=== PATIENT | male | born 1980 ===

== ENCOUNTER 2018-06-12 08:14 | Day surgery (SDC) | payer BC ==
--- NOTE | 2018-06-07 18:34 | HP ---
PREOPERATIVE HISTORY AND PHYSICAL: DATE OF SURGERY/ADMISSION: 06/12/18 DATE OF OFFICE VISIT/ENCOUNTER: 05/21/18 ATTENDING SURGEON: Ruma Cisse MD * (DICTATED BY ARSENIO HERNÁNDEZ) PROCEDURE: Right wrist carpal tunnel release, right ulnar nerve decompression at the elbow. HISTORY OF PRESENT ILLNESS: This is a 38-year-old male who complains of numbness and tingling in his bilateral hands, right is worse than left. Symptoms have been getting worse gradually over the past year. He does not recall any specific injury. He feels numbness mostly in the small and ring fingers, but sometimes in the middle finger and occasionally also his thumb. 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 He had an EMG/nerve conduction study, which showed moderate carpal tunnel syndrome on the right and clinical exam shows ulnar nerve compression at the elbow. The patient has consented to proceed with surgical intervention. PAST MEDICAL HISTORY: Unremarkable. PAST SURGICAL HISTORY: Appendectomy. CURRENT MEDICATIONS: None. ALLERGIES: SULFA ANTIBIOTICS cause hives. FAMILY MEDICAL HISTORY: Noncontributory. SOCIAL HISTORY: The patient is employed at [employer] as a electronics mechanic apprentice. He is a current smoker. He smokes approximately a half a pack per day and has done so for the past 20 years. He denies recreational drug use. He drinks alcohol on occasion. REVIEW OF SYSTEMS: Negative for general, cephalic, cardiovascular, respiratory , GI, , other musculoskeletal, integumentary, endocrine, neurologic, hematologic symptoms. Infectious disease is negative for MRSA, hepatitis C, and HIV. PHYSICAL EXAMINATION GENERAL: Well-developed, well-nourished 38-year-old male, in no acute distress. VITAL SIGNS: Height 5 feet 11-1/2 inches, weight 210 pounds. Pulse rate 98, blood pressure 130/78. HEENT: Normocephalic, atraumatic. Pupils are equal, round, and reactive to light and accommodation. Extraocular movements are intact. Throat is clear. NECK: Supple. No palpable lymph nodes. PULMONARY: Lungs are clear to auscultation bilaterally. No wheezes, rales, or rhonchi. CARDIOVASCULAR: Regular rate and rhythm. S1, S2. No murmurs, rubs, or gallops. No edema. ABDOMEN: Positive bowel sounds, soft, nontender. NEUROLOGICAL: Alert and oriented x3. Cranial nerves II through XII are intact. MUSCULOSKELETAL: On exam of his right upper extremity, he has no obvious muscle wasting. He has a positive Tinel's sign at the ulnar nerve at the elbow. He has significant weakness trying to resist finger abduction and thumb abduction. He has a positive Tinel's sign at the median nerve at the wrist. He can make a full fist. He had decreased sensation to light touch in all of the fingers. IMAGING STUDIES: EMG/nerve conduction study shows moderate carpal tunnel syndrome on the right. IMPRESSION: Right carpal tunnel syndrome, right ulnar nerve compression at the elbow. PLAN: The patient is scheduled to undergo a right wrist carpal tunnel release and a right ulnar nerve decompression at the elbow with Dr. Cisse on 06/12/18. He will return to the office 10 days postop for followup and suture removal. A prescription for Spencer was e-scribed to the patient's pharmacy for postoperative pain management. ARSENIO HERNÁNDEZ [id number]/[facility] #: [id number] DEANNA
[~2018-06-12 08:14] MED LIST: Buffered Lidocaine 0.9% SYRIN* 5 ML/SYR SYRINGE INTRADERM ONE
[2018-06-12] MEDS ORDERED: ceFAZolin 2 GM PREMIX in ORs 2 GM/50 ML BAG IVPB ONE (08:50)
[2018-06-12] MEDS ORDERED: Propofol* 10 MG/ML 20 ML BTL ONE (08:59)
[2018-06-12] MEDS ORDERED: Lidocaine 2% PF * 5 ML VIAL ONE (08:59)
[2018-06-12] MEDS ORDERED: Midazolam* 1 MG/ML 2 ML VIAL (2 MG) ONE (09:02)
[2018-06-12] MEDS ORDERED: Lidocaine 1% INJ* 10 MG/ML 30 ML SDV ONE (09:24)
[2018-06-12] MEDS ORDERED: Bupivacaine 0.5% PF 10 ML VIAL INJ ONE (09:36)
[2018-06-12 13:48] VITALS: BP 125/88
--- NOTE | 2018-06-12 22:46 | OP ---
DATE OF OPERATION: 06/12/18 - [facility] DATE OF : 82 SURGEON: Ruma Cisse MD COMMERCIAL SUBCONTRACTOR: ARSENIO Mart ANESTHESIA: Local MAC. PRE-OP DIAGNOSES: Ulnar nerve compression at the right elbow and median nerve compression at the right wrist. POST-OP DIAGNOSES: Ulnar nerve compression at the right elbow and median nerve compression at the right wrist. OPERATIVE PROCEDURE: Right carpal tunnel release and ulnar nerve decompression at the elbow. INDICATIONS: Ruy is a 38-year-old male who has numbness and tingling in all the fingers of his right hand, clinically has ulnar nerve compression at the elbow and median nerve compression at the wrist, both on the right. He presents for decompression of both nerves. ESTIMATED BLOOD LOSS: Zero. TOURNIQUET TIME: Approximately 30 minutes. DESCRIPTION OF PROCEDURE: The patient was brought to the operating room, was given a sedation anesthetic, and a local infiltration of 10 cc of 1% plain lidocaine at the right elbow, 10 cc of 1% plain lidocaine at the right wrist, and an additional 10 cc of 0.5% Marcaine plain and 5 cc of 1% plain lidocaine at the right elbow. The skin of his right upper extremity was prepped and draped in the usual sterile fashion. The upper extremity was exsanguinated and the tourniquet elevated to 250 mmHg. A curvilinear incision was made centered between the medial epicondyle and the tip of the olecranon process. We dissected bluntly down to the ulnar nerve, proximal to the elbow joint and was traced out proximally for several centimeters, then through the cubital tunnel which was completely released and then into the FCU muscle. The superficial and deep fascia of the FCU muscle was released. Deep branch of the medial antebrachial cutaneous nerve was preserved. The medial intermuscular septum was divided as it had a sharp edge near the nerve. The wound was copiously irrigated with saline. The nerve was in good condition. The subcutaneous tissue was closed with 3-0 Polysorb and the skin with skin tevin. Next, a longitudinal incision was made in the palm in line with the ring finger. We dissected through the subcutaneous tissue sharply with a knife and then more proximally with the scissors. The nerve was dissected free from surrounding tissue and there was an area of moderate compression of the mid portion of the ligament. The wound was irrigated and the skin edges reapproximated with 4-0 nylon suture. The wounds were dressed with Xeroform, 4x4 , Webril, and an Terrance wrap. The patient tolerated the procedure well and was brought to the recovery room in good condition. [id number]/[facility] #: [id number] DEANNA
== END 2018-06-12 11:41 | disposition home or self-care (01) ==
LOC: OREAST 08:14
PROVIDERS: ATTEND Orthopaedic Surgery
DX: G56.21 Lesion of ulnar nerve, right upper limb (principal); G56.01 Carpal tunnel syndrome, right upper limb; F17.210 Nicotine dependence, cigarettes, uncomplicated
CPT/HCPCS: 93005; J0690; J2250; J2704